=== PATIENT | male | born 1945 | race Caucasian/White ===

== ENCOUNTER 2018-09-18 17:56 | Inpatient (IN) | payer OTHER | END 2018-09-20 18:53 | LOC: J6S 09-19 00:50 → JER 17:56 → JERBED 23:10 ==

== ENCOUNTER 2018-10-30 13:57 | Emergency (ER) | payer OTHER ==
[2018-10-30 14:28] VITALS: BP 126/68; PULSE 71; BMI 28.3
--- NOTE | 2018-10-30 16:22 | PDOC ---
Documentation entered by Mayra Maher SCRIBE, acting as scribe for Yossi Thompson MD. Yossi Thompson MD: This documentation has been prepared by the scribe, Mayra Maher SCRIBE, under my direction and personally reviewed by me in its entirety. I confirm that the documentation accurately reflects all work, treatment, procedures, and medical decision making performed by me. History of Present Illness - General Chief Complaint: Pain Stated Complaint: ABD PAIN Time Seen by Provider: 10/30/18 14:18 History Source: Patient Exam Limitations: No Limitations - History of Present Illness Initial Comments: 10/30/18 15:26 The patient is a 73-year-old male from [facility], with a past medical history of anemia and gerd, who presents to the ED with 1 month of LLQ abdominal pain. He describes the pain at a intermittent, 7/10 in severity, and exacerbated at night. The patient reports feeling lightheaded when the pain comes on, but denies any loss of consciousness. LBM was 2-3 days ago after receiving an enema ; no blood noted. He has not had a full meal in a couple of days due to the pain. The patient denies fevers, chills, nausea, vomiting, or diarrhea. Denies any chest pain, palpitations or shortness of breath. Denies any dysuria, frequency, hesitancy, urgency, or hematuria. Denies any weakness or changes in strength or sensation. Allergies: NKA Social History: None reported. Surgical History: RT hip sx. PCP: Dr. Negrete Past History - Past Medical History Allergies/Adverse Reactions: Allergies Allergy/AdvReac Type Severity Reaction Status Date / Time No Known Allergies Allergy Verified 10/30/18 14:05 Home Medications: Ambulatory Orders Acetaminophen 650 mg PO QID PRN 09/18/18 Alendronate Sodium [Binosto] 70 mg PO WEEKLY 09/18/18 Ascorbic Acid [Vitamin C] 500 mg PO DAILY 09/18/18 Calcium Carbonate/Vitamin D3 [Calcium 500-Vit D3 200 Tablet] 1 each PO BID 09/18 Cholecalciferol (Vitamin D3) [Vitamin D3] 1,000 unit PO DAILY 09/18/18 Famotidine [Pepcid] 20 mg PO HS 09/18/18 Melatonin/Pyridoxine HCl (B6) [Melatonin 3 mg Tablet] 1 each PO HS 09/18/18 Meloxicam 15 mg PO DAILY 09/18/18 Menthol [Icy Hot] 1 patch TP PRN PRN 09/18/18 Morphine Sulfate 15 mg PO BID 09/18/18 Multivitamin [Multiple Vitamins] 1 each PO DAILY 09/18/18 Oxycodone HCl/Acetaminophen [Oxycodone-Acetaminophen 5-325] 1 each PO PRN PRN Pantoprazole Sodium [Protonix] 40 mg PO BID 09/18/18 Polyethylene Glycol 3350 17 gm PO DAILY 09/18/18 Simethicone 80 mg PO QID 09/18/18 Bisacodyl [Bisacodyl -] 5 mg PO DAILY PRN #30 tablet.dr 09/20/18 Docusate Sodium [Colace -] 100 mg PO TID #60 capsule 09/20/18 Tamsulosin HCl [Flomax] 0.8 mg PO DAILY #60 cap.er.24h 09/20/18 Nitrofurantoin Monohyd/M-Cryst [Macrobid -] 100 mg PO BID #10 capsule 10/30/18 Anemia: Yes Asthma: No Cancer: No Cardiac Disorders: No CVA: No COPD: No CHF: No Dementia: No Diabetes: No GI Disorders: Yes (GERD) Disorders: No HTN: No Hypercholesterolemia: No Kidney Stones: No Liver Disease: No Seizures: No Thyroid Disease: No - Surgical History Orthopedic Surgery: Yes (s/p surgery of right hip in 2010 after a fall ambulation with cane) - Reproductive History Testicular Surgery: No - Suicide/Smoking/Psychosocial Hx Smoking History: Former smoker Have you smoked in the past 12 months: No Number of Cigarettes Smoked Daily: 10 Cigars Per Day: 0 Information on smoking cessation initiated: No 'Breaking Loose' booklet given: 04/05/13 Hx Alcohol Use: No Drug/Substance Use Hx: No Substance Use Type: Prescribed Hx Substance Use Treatment: No Abd/GI Specific PMHX - Complaint Specific PMHX Hepatitis: No Pancreatitis: No Review of Systems - Review of Systems Able to Perform ROS?: Yes Comments:: 10/30/18 15:26 CONSTITUTIONAL: No reported: Fever, Chills, Diaphoresis, Generalized Weakness, Malaise, Loss of Appetite HEENT: No reported: Rhinorrhea, Nasal Congestion, Throat Pain, Throat Swelling, Difficulty Swallowing, Mouth Swelling, Ear Pain, Eye Pain, Visual Changes CARDIOVASCULAR: (+)Lightheadedness. No reported: Chest Pain, Syncope, Palpitations, Irregular Heart Rate, Peripheral Edema RESPIRATORY: No reported: Cough, Shortness of Breath, SOB with Exertion, Orthopnea, Wheezing , Stridor, Hemoptysis GASTROINTESTINAL: (+)Abdominal pain. No reported: Abdominal Distension, Nausea, Vomiting, Diarrhea , Constipation, Melena, Hematochezia GENITOURINARY: No reported: Dysuria, Frequency, Urgency, Hesitancy, Flank Pain, Genital Pain MUSCULOSKELETAL: No reported: Myalgia, Arthralgia, Joint Swelling, Back pain, Neck Pain SKIN: No reported: Rash, Itching, Pallor HEMEATOLOGIC/IMMUNOLOGIC: No reported: Easy Bleeding, Easy Bruising, Lymphadenopathy, Frequent infections ENDOCRINE: No reported: Unexplained Weight Gain, Unexplained Weight Loss, Heat Intolerance , Cold Intolerance NEUROLOGIC: No reported: Headache, Focal Weakness, Paresthesias, Vertigo, Lightheadedness, Unsteady Gait, Seizure, Mental Status Changes, Incontinence PSYCHIATRIC: No reported: Anxiety, Depression *Physical Exam - Vital Signs Last Vital Signs Temp Pulse Resp BP Pulse Ox 97.9 F 71 18 126/68 96 10/30/18 14:07 10/30/18 14:07 10/30/18 14:07 10/30/18 14:07 10/30/18 14:07 - Physical Exam Comments: 10/30/18 15:28 GENERAL: The patient is awake, alert, and fully oriented, Nontoxic - in no acute distress. HEAD: Normocephalic, atraumatic. EYES: extraocular movements intact, sclera anicteric, conjunctiva clear. ENT: Normal voice, Moist mucous membranes. NECK: Normal range of motion, supple LUNGS: Breath sounds equal, clear to auscultation bilaterally. No wheezes, no rhonchi, no rales. HEART: Regular rate and rhythm, without murmur, rub or gallop. ABDOMEN: Soft, nontender, No guarding, no rebound.No CVA tenderness EXTREMITIES: Normal range of motion, no edema. No cyanosis. No erythema, or tenderness. NEUROLOGICAL: No facial assymetry, Normal speech, PSYCH: Normal mood, normal affect. SKIN: Warm, Dry, normal turgor. ED Treatment Course - LABORATORY CBC & Chemistry Diagram: 10/30/18 16:28 10/30/18 16:28 Medical Decision Making - Medical Decision Making 10/30/18 15:18 71y M hx of urinary retention, constipation presents with 1 month of nonradiating spurpaubic pain that is crampy/intermittent/sharp in nature, last BM 2-3 days ago after an enema. Pain is intermittent, worse at night, pt notes he urinates in dribbles. no abd surgeries, denies diarrhea, bpr, melena, fever/ chills, n/v, cp, sob, n bedside ultrasound the patient had a very large bladder suspect that the patient's abdominal pain secondary to retention 10/30/18 16:59 A Chavira catheter was placed it was approximately 900 mL of yellow urine drained with relief of the patient's abd pain awaiting lab work 10/30/18 17:32 pts labs reviewed uti suggestive of infection will treat with abx will dc with urology fu 10/30/18 18:24 I had an extensive discussion wtih the patient regarding the plan. The pt expresses concern that he has an infection and would like to stay in the hospital until the infection clears. After extensive discussion (>45 min) in explaining to him that we know what the cause of his abdominal pain is (urinary retention) and a likely cause of his retention (UTI), which will be resolved with abx - he agreed to outpatient management. I discussed strict return prcutins for him including any worseining abd pain, back pain, fevers, vomiting or other concerns. Will have him fu with urology and dr pederson for outptaient mangement. *DC/Admit/Observation/Transfer Diagnosis at time of Disposition: Urinary retention UTI (urinary tract infection) Qualifiers: Urinary tract infection type: acute cystitis Hematuria presence: with hematuria Qualified Code(s): N30.01 - Acute cystitis with hematuria - Discharge Dispostion Disposition: SNF FACILITY Condition at time of disposition: Stable Decision to Admit order: No - Prescriptions Prescriptions: Nitrofurantoin Monohyd/M-Cryst [Macrobid -] 100 mg PO BID #10 capsule - Referrals Referrals: Reese Negrete MD [Primary Care Provider] - Cosme Wong MD [Staff Physician] - - Patient Instructions Printed Discharge Instructions: DI for Urinary Retention in Men Additional Instructions: Return to the emergency department immediately with ANY new, persistent or worsening symptoms including any fevers, chills, nausea, vomiting, worsening abdominal pain or any other concerns. You MUST call and follow up with your urologist within 3-4 days for further evaluation of your symptoms. Results were discussed with you. Please make sure your doctor reviews the results of your emergency evaluation. Your Emergency Department visit is not complete without a follow up with your doctor. Print Language: CROATIAN - Post Discharge Activity
[2018-10-30 16:40] LABS: BASO % 0.2 % (0-2.0); EOS % 0.7 % (0-4.5); HEMATOCRIT 36.1 % (35.4-49); HEMOGLOBIN 12.1 GM/dL (11.7-16.9); LYMPH % 19.7 % (8-40); MCHC 33.4 g/dl (32.0-35.9); MEAN CELL VOLUME 95.8 fl (80-96); MEAN PLT VOLUME 6.6 fl (7.5-11.1); MONO % 10.2 % (3.8-10.2); NEUT % 69.2 % (42.8-82.8); PLATELET COUNT 301 K/MM3 (134-434); RBC 3.77 M/mm3 (4.00-5.60); RDW 13.6 % (11.9-15.9); WHITE BLOOD COUNT 8.6 K/mm3 (4.0-10.0)
[2018-10-30 17:00] LABS: EPI CELLS 0.5 /HPF (0-5/HPF); HYALINE CASTS 6 /lpf (0-8); PH,URINE 7.5 (5.0-8.0); URINE APPEARANCE CLOUDY; URINE BACTERIA >9000 /hpf (NEGATIVE); URINE BILIRUBIN NEGATIVE (NEGATIVE); URINE COLOR YELLOW; URINE GLUCOSE (UA) NEGATIVE (NEGATIVE); URINE KETONE NEGATIVE (NEGATIVE); URINE LEUK ESTERASE 3+ (NEGATIVE); URINE NITRITE NEGATIVE (NEGATIVE); URINE PROTEIN NEGATIVE (NEGATIVE); URINE RBC 3 /hpf (0-4); URINE UROBILINOGEN 0.2 mg/dL (0.2-1.0); URINE WBC 255 /hpf (0-5)
[2018-10-30 17:06] LABS: ALBUMIN 3.5 g/dl (3.4-5.0); BILIRUBIN,TOTAL 0.3 mg/dL (0.2-1); CALCIUM 8.4 mg/dL (8.5-10.1); CREATININE 0.8 mg/dL (0.55-1.3); POTASSIUM 4.5 mmol/L (3.5-5.1); TOT PROT 7.7 g/dl (6.4-8.2)
[2018-10-30] MEDS ORDERED: NITROFURANTOIN MACROCRYSTAL 50 MG CAPSULE (FP) PO SCH (17:30)
[2018-10-30] MEDS ORDERED: NITROFURANTOIN MACROCRYSTAL 50 MG CAPSULE (FP) ONE (17:37)
[2018-10-30 21:35] VITALS: TEMP 98
== END 2018-10-30 21:35 ==
LOC: JER 13:57
PROC: 0T9B70Z Drainage of Bladder with Drainage Device, Via Natural or Artificial Opening (ICD-10-PCS; principal; 2018-10-30)
PROC: BT40ZZZ Ultrasonography of Bladder (ICD-10-PCS; 2018-10-30)
DX: N39.0 Urinary tract infection, site not specified (principal); R33.8 Other retention of urine
CPT/HCPCS: 36415; 51702; 76857; 80053; 81003; 83690; 85025; 87086; 87186; 99283-25